=== PATIENT | female | born 1980 | race African-American/Black ===

== ENCOUNTER 2016-04-10 09:17 | Emergency (ER) | payer OTHER ==
[2016-04-10 09:28] VITALS: BP 131/86; PULSE 70; RESP 20; TEMP 98
--- NOTE | 2016-04-10 09:42 | ED ---
ENT HPI - General Chief complaint: Dental/Oral Stated complaint: Abcess Time Seen by Provider: 04/10/16 09:36 Source: patient, RN notes reviewed Mode of arrival: ambulatory Limitations: no limitations - History of Present Illness Initial comments: 35-year-old female presents emergency Department chief complaint right-sided dental pain. Patient states had problems the past. Patient was also have a wisdom tooth removed though she did not go to oral surgeon. Patient has impacted dentition. Patient denies any fever or chills. Pain started yesterday worse throughout the night. Patient called her dentist this morning she has appointment tomorrow. - Related Data Home Medications Medication Instructions Recorded Confirmed Ibuprofen [Advil] 200 mg PO ONCE PRN 04/10/16 04/10/16 Multivitamins, Thera [Multivitamin] 1 tab PO DAILY 04/10/16 04/10/16 Previous Rx's Medication Instructions Recorded Acetaminophen-Codeine 300-30mg 1 tab PO Q4H PRN #20 tablet 04/10/16 [Tylenol #3] Penicillin V Potassium [Pen Vee K] 500 mg PO QID #40 tab 04/10/16 Allergies Allergy/AdvReac Type Severity Reaction Status Date / Time No Known Allergies Allergy Verified 04/10/16 09:34 Review of Systems ROS Statement: Those systems with pertinent positive or pertinent negative responses have been documented in the HPI. ROS Other: All systems not noted in ROS Statement are negative. Past Medical History Past Medical History: No Reported History History of Any Multi-Drug Resistant Organisms: None Reported Past Surgical History: Section Past Psychological History: No Psychological Hx Reported Smoking Status: Current every day smoker Past Alcohol Use History: Occasional Past Drug Use History: None Reported General Exam Limitations: no limitations General appearance: alert, in no apparent distress Head exam: Present: atraumatic, normocephalic, normal inspection Eye exam: Present: normal appearance, PERRL, EOMI. Absent: scleral icterus, conjunctival injection, periorbital swelling ENT exam: Present: mucous membranes moist, TM's normal bilaterally, normal external ear exam. Absent: normal oropharynx (Impacted dentition #1 and 32 there is no drainable abscess noted mild erythema some dental caries noted) Neck exam: Present: normal inspection, full ROM. Absent: tenderness, meningismus, lymphadenopathy Respiratory exam: Present: normal lung sounds bilaterally. Absent: respiratory distress, wheezes, rales, rhonchi, stridor Cardiovascular Exam: Present: regular rate, normal rhythm, normal heart sounds. Absent: systolic murmur, diastolic murmur, rubs, gallop, clicks Course Vital Signs 04/10/16 09:26 Temperature 98.0 F Pulse Rate 70 Respiratory 20 Rate Blood Pressure 131/86 O2 Sat by Pulse 100 Oximetry Medical Decision Making - Medical Decision Making 35-year-old female presented for dental pain. Patient was started antibiotics, pain medication. Patient has appointment with dentist tomorrow. Return parameters were discussed. Disposition Clinical Impression: Toothache, Impacted molar Disposition: HOME SELF-CARE Condition: Stable Instructions: Toothache (ED) Additional Instructions: Please follow-up with your dentist as scheduled appointment tomorrow.Please return to the Emergency Department if symptoms worsen or any other concerns. Prescriptions: Acetaminophen-Codeine 300-30mg [Tylenol #3] 1 tab PO Q4H PRN #20 tablet PRN Reason: pain Penicillin V Potassium [Pen Vee K] 500 mg PO QID #40 tab Referrals: Kevin Guallpa MD [Primary Care Provider] - 1-2 days Time of Disposition: 09:41
== END 2016-04-10 09:53 | disposition home or self-care (01) ==
LOC: EC 09:17
DX: K01.1 Impacted teeth (principal); K02.9 Dental caries, unspecified; F17.200 Nicotine dependence, unspecified, uncomplicated; Z79.899 Other long term (current) drug therapy
CPT/HCPCS: 99282

== ENCOUNTER 2016-05-17 23:52 | Emergency (ER) | payer OTHER ==
--- NOTE | 2016-05-18 00:31 | ED ---
General Adult HPI - General Chief complaint: Urogenital Stated complaint: Pelvic Pain Time Seen by Provider: 05/18/16 00:06 Source: patient, RN notes reviewed Mode of arrival: ambulatory Limitations: no limitations - History of Present Illness Initial comments: This is a 35-year-old female who presents with pelvic pain 1 month. Patient states she has also noticed an odor. Patient denies any vaginal discharge or vaginal bleeding. Patient states she's had a tubal ligation and patient denies any chance of being . Patient states she just had a menstrual cycle that ended this past Saturday. Patient states she is unsure if she could have an STD. Patient does states she has a new sexual partner. Patient denies any dysuria or frequency of urination. Patient denies any recent fever, chills, shortness breath, chest pain, abdominal pain, nausea/vomiting/diarrhea, back pain, numbness, tingling, hematuria, headache, or visual changes, or any other complaints. - Related Data Home Medications Medication Instructions Recorded Confirmed Ibuprofen [Advil] 200 mg PO ONCE PRN 04/10/16 04/10/16 Multivitamins, Thera [Multivitamin] 1 tab PO DAILY 04/10/16 04/10/16 Previous Rx's Medication Instructions Recorded Acetaminophen-Codeine 300-30mg 1 tab PO Q4H PRN #20 tablet 04/10/16 [Tylenol #3] Penicillin V Potassium [Pen Vee K] 500 mg PO QID #40 tab 04/10/16 Allergies Allergy/AdvReac Type Severity Reaction Status Date / Time No Known Allergies Allergy Verified 04/10/16 09:34 Review of Systems ROS Statement: Those systems with pertinent positive or pertinent negative responses have been documented in the HPI. ROS Other: All systems not noted in ROS Statement are negative. Past Medical History Past Medical History: No Reported History History of Any Multi-Drug Resistant Organisms: None Reported Past Surgical History: Section Past Psychological History: No Psychological Hx Reported Smoking Status: Current every day smoker Past Alcohol Use History: Occasional Past Drug Use History: None Reported General Exam - General Exam Comments Initial Comments: General: The patient is awake and alert, in no distress, and does not appear acutely ill. Eye: Pupils are equal, round and reactive to light, extra-ocular movements are intact. No nystagmus. There is normal conjunctiva bilaterally. No signs of icterus. Ears: TMs pink and pearly with intact cone of light bilaterally. Normal external ear canals Nose: Nasal turbinates pink and moist Mouth and throat: There are moist mucous membranes and no oral lesions. Neck: The neck is supple, there is no tenderness or JVD. Cardiovascular: There is a regular rate and rhythm. No murmur, rub or gallop is appreciated. Respiratory: Lungs are clear to auscultation, respirations are non-labored, breath sounds are equal. No wheezes, stridor, rales, or rhonchi. Gastrointestinal: Soft, non-distended, non-tender abdomen without masses or organomegaly noted. There is no rebound or guarding present. No CVA tenderness. Bowel sounds are unremarkable. Musculoskeletal: Normal ROM, no tenderness. Strength 5/5. Sensation intact. Radial pulses equal bilaterally 2+. Neurological: A&O x 3. CN II-XII intact, There are no obvious motor or sensory deficits. Coordination appears grossly intact. Speech is normal. Skin: Skin is warm and dry and no rashes or lesions are noted. Psychiatric: Cooperative, appropriate mood & affect, normal judgment. Limitations: no limitations External exam: Present: normal external exam. Absent: erythema, swelling, lesions, lacerations, ecchymosis Speculum exam: Present: normal speculum exam. Absent: erythema, vaginal discharge, cervical discharge, vaginal bleeding By manual exam: Present: normal by manual exam. Absent: cervical motion tenderness, adnexal tenderness, adnexal mass, uterine enlargement, uterine tenderness Course Vital Signs 05/17/16 05/18/16 23:55 01:45 Temperature 97.5 F L 97.3 F L Pulse Rate 81 90 Respiratory 16 18 Rate Blood Pressure 155/87 135/87 O2 Sat by Pulse 100 98 Oximetry Medical Decision Making - Medical Decision Making This is a 35-year-old female presents with pelvic pain 1 month. On physical exam patient is well-appearing and afebrile. Normal speculum exam. No vaginal discharge. Normal bimanual exam with no cervical motion tenderness or adnexal tenderness. Abdomen is soft and nontender. No CVA tenderness. Genital cultures, gonorrhea/chlamydia, Trichomonas and UA and urine culture were done. UA shows no sign of urinary tract infection. Trichomonas is negative. I discussed the results with patient. I discussed that patient will be called if any of her GC cultures come back positive. Discussed Tylenol and Motrin for any pain. I discussed follow-up with the account administrator and patient is given a referral today. I discussed return parameters. Discussed that patient should follow up with PCP in one to 2 days or return to the [facility] for any worsening symptoms or for any further concerns. Patient was receptive to this plan and patient will be discharged home. - Lab Data Lab Results 05/18/16 05/18/16 05/18/16 Range/Units 00:04 00:04 00:45 Urine Color Colorless Urine Appearance Clear (Clear) Urine pH 5.5 (5.0-8.0) Ur Specific [place] 1.001 (1.001-1.035) Urine Protein Negative (Negative) Urine Glucose (UA) Negative (Negative) Urine Ketones Negative (Negative) Urine Blood Negative (Negative) Urine Nitrite Negative (Negative) Urine Bilirubin Negative (Negative) Urine Urobilinogen <2.0 (<2.0) mg/dL Ur Leukocyte Esterase Negative (Negative) Urine HCG, Qual Not Detected (Not Detectd) Trichomonas Ag (Rapid) Negative (Negative) Disposition Clinical Impression: Chronic pelvic pain in female Disposition: HOME SELF-CARE Condition: Good Instructions: Pelvic Pain in Women (ED) Additional Instructions: Please use Tylenol and Motrin for any pain. You will be contacted if any of her cultures come back positive. Please follow-up with the account administrator.Please use medication as discussed. Please follow-up with family doctor in the next 2 days of symptoms have not improved. Please return to emergency room if the symptoms increase or worsen or for any other concerns. Referrals: Kevin Guallpa MD [Primary Care Provider] - 1-2 days Erica Belle DO [Doctor of Osteopathic Medicine] - 1-2 days Time of Disposition: 01:42
[2016-05-18 00:57] LABS: Appearance,Urine Clear (Clear); Bilirubin,Urine Negative (Negative); Glucose,Urine (UA) Negative (Negative); Ketones,Urine Negative (Negative); Leukocyte Esterase,Urine Negative (Negative); Nitrite,Urine Negative (Negative); PH, Urine 5.5 (5.0-8.0); Protein,Urine Negative (Negative); Specific Gravity,Urine 1.001 (1.001-1.035); UA Billing (MACRO vs. MICRO) CHEM; Urobilinogen,Urine <2.0 mg/dL (<2.0)
[2016-05-18 01:47] VITALS: BP 135/87; PULSE 90; RESP 18; TEMP 97.3
[2016-05-21 15:44] LABS: Chlamydia/GC Source Vaginal
== END 2016-05-18 01:58 | disposition home or self-care (01) ==
LOC: EC 23:52
DX: G89.29 Other chronic pain (principal); R10.2 Pelvic and perineal pain; F17.200 Nicotine dependence, unspecified, uncomplicated; Z98.51 Tubal ligation status; Z79.899 Other long term (current) drug therapy
CPT/HCPCS: 81003; 81025; 87070; 87086; 87205; 87491; 87591; 87808; 99284

== ENCOUNTER 2016-10-12 19:01 | Emergency (ER) | payer OTHER ==
--- NOTE | 2016-10-12 19:59 | ED ---
General Adult HPI - General Chief complaint: Urogenital Stated complaint: Female /Spotting Time Seen by Provider: 10/12/16 19:27 Source: patient Mode of arrival: ambulatory Limitations: no limitations - History of Present Illness Initial comments: 36-year-old female patient presents to emergency department today for evaluation of vaginal irritation, itching, and discharge. Patient states that 5 days ago she did have sexual intercourse, states that since the intercourse she has been having some spotting, and has irritation, itching, and white discharge. She states she was treated for a vaginal bacterial infection 3 weeks ago and did complete her antibiotics for this. Patient states she does have 2 sexual partners however states she is not concerned for STD. Patient denies any fever, chills, abdominal pain, nausea, vomiting, or dyspareunia. Last menstrual period was 2 weeks ago. - Related Data Previous Rx's Medication Instructions Recorded Ciprofloxacin HCl [Cipro] 500 mg PO Q12HR #14 tablet 10/12/16 Allergies Allergy/AdvReac Type Severity Reaction Status Date / Time Latex, Natural Rubber Allergy Unknown Verified 10/12/16 20:18 Review of Systems ROS Statement: Those systems with pertinent positive or pertinent negative responses have been documented in the HPI. ROS Other: All systems not noted in ROS Statement are negative. Past Medical History Past Medical History: No Reported History History of Any Multi-Drug Resistant Organisms: None Reported Past Surgical History: Appendectomy, Section Past Psychological History: No Psychological Hx Reported Smoking Status: Current every day smoker Past Alcohol Use History: Occasional Past Drug Use History: None Reported General Exam Limitations: no limitations General appearance: alert, in no apparent distress Respiratory exam: Present: normal lung sounds bilaterally. Absent: respiratory distress, wheezes, rales, rhonchi, stridor Cardiovascular Exam: Present: regular rate, normal rhythm, normal heart sounds. Absent: systolic murmur, diastolic murmur, rubs, gallop, clicks GI/Abdominal exam: Present: soft, normal bowel sounds. Absent: distended, tenderness, guarding, rebound, rigid External exam: Present: normal external exam. Absent: erythema, swelling, lesions Speculum exam: Present: vaginal discharge (Thick yellow). Absent: normal speculum exam, erythema, vaginal bleeding By manual exam: Present: normal by manual exam. Absent: cervical motion tenderness, adnexal tenderness, adnexal mass, uterine enlargement Extremities exam: Present: normal inspection, full ROM, normal capillary refill. Absent: tenderness, pedal edema, joint swelling, calf tenderness Back exam: Present: normal inspection. Absent: CVA tenderness (R), CVA tenderness (L) Neurological exam: Present: alert, oriented X3, CN II-XII intact Psychiatric exam: Present: normal affect, normal mood Skin exam: Present: warm, dry, intact, normal color. Absent: rash Course Vital Signs 10/12/16 10/12/16 19:15 21:41 Temperature 99.2 F 98.6 F Pulse Rate 66 69 Respiratory 20 18 Rate Blood Pressure 162/97 151/85 O2 Sat by Pulse 100 100 Oximetry Medical Decision Making - Medical Decision Making 36-year-old female patient presents to emergency department today for evaluation of vaginal irritation, discharge, and itching. Pelvic exam did reveal thick white/yellow vaginal discharge, however there is no cervical motion tenderness or cervicitis noted. Patient did have urinary tract infection , urine is sent for culture. Vaginal cultures sent. Patient will be given IM Rocephin, azithromycin, and Flagyl for possible STD. Patient will be given a prescription for Cipro for urinary tract infection. Patient is instructed to follow-up with her mortar carrier as soon as possible. Instructed to return here immediately for new, worsening, or concerning symptoms. Patient verbalized understanding and agrees with this plan. - Lab Data Lab Results 10/12/16 10/12/16 10/12/16 Range/Units 19:54 19:54 20:00 Urine Color Yellow Urine Appearance Cloudy H (Clear) Urine pH 7.0 (5.0-8.0) Ur Specific [place] 1.027 (1.001-1.035) Urine Protein 1+ H (Negative) Urine Glucose (UA) Negative (Negative) Urine Ketones Negative (Negative) Urine Blood Small H (Negative) Urine Nitrite Negative (Negative) Urine Bilirubin Negative (Negative) Urine Urobilinogen 3.0 (<2.0) mg/dL Ur Leukocyte Esterase Large H (Negative) Urine RBC 27 H (0-5) /hpf Urine WBC 30 H (0-5) /hpf Ur Squamous Epith Cells 14 H (0-4) /hpf Urine Mucus Few H (None) /hpf Urine HCG, Qual Not Detected (Not Detectd) Trichomonas Ag (Rapid) Negative (Negative) Disposition Clinical Impression: Vaginitis, Urinary tract infection Disposition: HOME SELF-CARE Condition: Good Instructions: Urinary Tract Infection in Women (ED), Vaginitis (ED) Additional Instructions: Complete antibiotic prescription in full. Return immediately for any new, worsening, or concerning symptoms. Follow-up with mortar carrier as soon as possible. Prescriptions: Ciprofloxacin HCl [Cipro] 500 mg PO Q12HR #14 tablet Referrals: Kevin Guallpa MD [Primary Care Provider] - 1-2 days Jody Hurtado DO [Doctor of Osteopathic Medicine] - 1-2 days Time of Disposition: 21:18
[2016-10-12 20:15] LABS: Appearance,Urine Cloudy (Clear); Bilirubin,Urine Negative (Negative); Glucose,Urine (UA) Negative (Negative); Ketones,Urine Negative (Negative); Leukocyte Esterase,Urine Large (Negative); Mucus,Urine Few /hpf; Nitrite,Urine Negative (Negative); Particle Count 30133; Protein,Urine 1+ (Negative); RBC,Urine 27 /hpf (0-5); Specific Gravity,Urine 1.027 (1.001-1.035); Squamous Epithelial Cell,Urine 14 /hpf (0-4); UA Billing (MACRO vs. MICRO) MICRO; WBC,Urine 30 /hpf (0-5)
[2016-10-12] MEDS ORDERED: metroNIDAZOLE 500 MG TAB PO STA (21:26)
[2016-10-12] MEDS ORDERED: cefTRIAXone 250 MG VIAL IM STA (21:26)
[2016-10-12] MEDS ORDERED: AZITHROMYCIN 500 MG TAB PO STA (21:26)
[2016-10-12 21:42] VITALS: BP 151/85; PULSE 69; RESP 18; TEMP 98.6
[2016-10-16 11:45] LABS: Chlamydia/GC Source Vaginal
== END 2016-10-12 21:46 | disposition home or self-care (01) ==
LOC: EC 19:01
DX: N76.0 Acute vaginitis (principal); N39.0 Urinary tract infection, site not specified; F17.200 Nicotine dependence, unspecified, uncomplicated; Z91.040 Latex allergy status
CPT/HCPCS: 87591; 87491; 81001; 81025; 87808; 87070; 87205; 99283; 96372; J0696

== ENCOUNTER 2017-03-26 15:51 | Emergency (ER) | payer OTHER ==
[2017-03-26 16:05] VITALS: BP 148/67; PULSE 71; RESP 18; TEMP 97.3
--- NOTE | 2017-03-26 16:11 | ED ---
General Adult HPI - General Chief complaint: Dental/Oral Stated complaint: dental pain Time Seen by Provider: 03/26/17 16:00 Source: patient, RN notes reviewed Mode of arrival: ambulatory Limitations: no limitations - History of Present Illness Initial comments: Patient 36-year-old female who presents emergency room today with a chief complaint of increased dental pain. Patient does admit to pain that started early this morning of tooth #2. Patient states that she did call her dentist but cannot get in until tomorrow. She states that she's tried ibuprofen with little relief of the symptoms. Patient denies any other complaints. Patient denies any recent fever, chills, shortness of breath, chest pain, back pain, abdominal pain, nausea or vomiting, numbness or tingling, headaches or visual changes, or any other complaints. - Related Data Previous Rx's Medication Instructions Recorded Hydrocodone/Acetaminophen [[place] 1 each PO Q6HR PRN #5 tab 03/26/17 5-325] Penicillin V Potassium [Pen Vee K] 500 mg PO QID #40 tablet 03/26/17 Allergies Allergy/AdvReac Type Severity Reaction Status Date / Time Latex, Natural Rubber Allergy Unknown Verified 03/26/17 16:05 Review of Systems ROS Statement: Those systems with pertinent positive or pertinent negative responses have been documented in the HPI. ROS Other: All systems not noted in ROS Statement are negative. Past Medical History Past Medical History: No Reported History History of Any Multi-Drug Resistant Organisms: None Reported Past Surgical History: Appendectomy, Section Past Psychological History: No Psychological Hx Reported Smoking Status: Current every day smoker Past Alcohol Use History: Occasional Past Drug Use History: None Reported General Exam - General Exam Comments Initial Comments: General: The patient is awake and alert, in no distress, and does not appear acutely ill. Eye: Pupils are equal, round and reactive to light, extra-ocular movements are intact. No nystagmus. There is normal conjunctiva bilaterally. No signs of icterus. Ears, nose, mouth and throat: There are moist mucous membranes and no oral lesions. Patient does have tenderness over tooth #2 in the gumline. There is no sign of abscess. Uvula midline. Patient swallows without difficulty. Neck: The neck is supple, there is no tenderness or JVD. Musculoskeletal: Normal ROM, no tenderness. Strength 5/5. Sensation intact. Pulses equal bilaterally 2+. Neurological: A&O x 3. CN II-XII intact, There are no obvious motor or sensory deficits. Coordination appears grossly intact. Speech is normal. Skin: Skin is warm and dry and no rashes or lesions are noted. Psychiatric: Cooperative, appropriate mood & affect, normal judgment. Limitations: no limitations Course Vital Signs 03/26/17 16:03 Temperature 97.3 F L Pulse Rate 71 Respiratory 18 Rate Blood Pressure 148/67 O2 Sat by Pulse 100 Oximetry Medical Decision Making - Medical Decision Making Patient be started on antibiotics and given short prescription of pain medication until she sees her dentist tomorrow. Disposition Clinical Impression: Pain, dental Disposition: HOME SELF-CARE Condition: Good Instructions: Dental Abscess (ED) Additional Instructions: Please use medication as discussed. Please follow-up with dentist tomorrow. Please return to emergency room if the symptoms increase or worsen or for any other concerns. Prescriptions: Hydrocodone/Acetaminophen [[place] 5-325] 1 each PO Q6HR PRN #5 tab PRN Reason: Pain Penicillin V Potassium [Pen Vee K] 500 mg PO QID #40 tablet Referrals: Kevin Guallpa MD [Primary Care Provider] - 1-2 days Time of Disposition: 16:09
== END 2017-03-26 16:19 | disposition home or self-care (01) ==
LOC: EC 15:51
DX: K08.89 Other specified disorders of teeth and supporting structures (principal); F17.200 Nicotine dependence, unspecified, uncomplicated; Z91.040 Latex allergy status
CPT/HCPCS: 99282

== ENCOUNTER → 2017-07-29 | Outpatient (CLI) | payer OTHER ==
--- NOTE | 2017-07-29 18:25 | XR ---
EXAMINATION TYPE: XR lumbar spine 2 or 3V DATE OF EXAM: 07/29/2017 COMPARISON: NONE HISTORY: Chronic back pain TECHNIQUE: 3 views FINDINGS: Lumbar vertebra have normal spacing and alignment. Posterior elements are intact. Sacroilia c joints appear normal. IMPRESSION: Normal lumbar spine
--- NOTE | 2017-07-29 18:26 | XR ---
EXAMINATION TYPE: XR thoracic spine 2V DATE OF EXAM: 07/29/2017 COMPARISON: NONE HISTORY: Chronic pain TECHNIQUE: 3 views FINDINGS: Thoracic vertebra have normal spacing and alignment. Posterior elements are intact. There i s no paraspinal mass. IMPRESSION: Negative thoracic spine exam.
--- NOTE | 2017-07-29 18:27 | XR ---
EXAMINATION TYPE: XR cervical spine comp DATE OF EXAM: 07/29/2017 COMPARISON: NONE HISTORY: Neck pain TECHNIQUE: 5 views FINDINGS: Cervical vertebra have normal spacing and alignment. Posterior element are intact. [place] xial facet joint is normal. There are no cervical ribs. IMPRESSION: Normal cervical spine.
--- NOTE | 2017-07-29 18:31 | XR ---
EXAMINATION TYPE: XR knee complete RT DATE OF EXAM: 07/29/2017 COMPARISON: NONE HISTORY: Chronic pain TECHNIQUE: 3 views FINDINGS: I see no fracture nor dislocation. There is calcification of the lateral meniscus. There is small knee joint effusion. I see no fracture. IMPRESSION: Lateral meniscus calcification. Small knee joint effusion. No fracture.
== END | disposition home or self-care (01) ==
LOC: RADXRMAIN 17:32
PROVIDERS: ATTEND Family Medicine
DX: M25.461 Effusion, right knee (principal); M25.861 Other specified joint disorders, right knee; M54.5 Low back pain; G89.29 Other chronic pain; M54.2 Cervicalgia
CPT/HCPCS: 72050; 72070; 72100